=== PATIENT | male | born 1960 | race Caucasian/White ===

== ENCOUNTER 2018-09-08 06:34 | Emergency (ER) | payer OTHER ==
[2018-09-08 06:46] VITALS: BP 126/89; PULSE 77; RESP 16; TEMP 98.2
[2018-09-08] MEDS ORDERED: KETOROLAC 60 MG/2 ML VIAL IM STA (07:20)
--- NOTE | 2018-09-08 07:32 | ED ---
General Adult HPI - General Chief complaint: Extremity Injury, Lower Stated complaint: [facility]-Knee injury Time Seen by Provider: 09/08/18 06:50 Source: patient, RN notes reviewed Mode of arrival: ambulatory Limitations: no limitations - History of Present Illness Initial comments: This is a 58-year-old male who presents emergency pertinent complaining of knee pain. Patient states he twisted it yesterday and now it hurts on the medial aspect of his left knee. Patient denies any swelling. Patient states extending it completely straight hurts the most and bending it makes her feel better. Patient is able to bear weight. Patient denies any other injury at this time. - Related Data Home Medications Medication Instructions Recorded Confirmed Valsartan [Diovan] 160 mg PO BID 05/19/14 04/26/15 Pravastatin Sodium 80 mg PO DAILY 04/26/15 04/26/15 Previous Rx's Medication Instructions Recorded Albuterol Inhaler [Ventolin 1 - 2 puff INHALATION Q6HR PRN #1 04/26/15 Inhaler] inhaler Allergies Allergy/AdvReac Type Severity Reaction Status Date / Time No Known Allergies Allergy Verified 09/08/18 06:46 Review of Systems ROS Statement: Those systems with pertinent positive or pertinent negative responses have been documented in the HPI. ROS Other: All systems not noted in ROS Statement are negative. Past Medical History Past Medical History: Hyperlipidemia, Hypertension Additional Past Medical History / Comment(s): sleep apnea History of Any Multi-Drug Resistant Organisms: None Reported Additional Past Surgical History / Comment(s): nasal Past Psychological History: No Psychological Hx Reported Smoking Status: Former smoker Past Alcohol Use History: Occasional Past Drug Use History: None Reported General Exam - General Exam Comments Initial Comments: GENERAL Patient is well-developed and well-nourished. Patient is in mild distress. EYES Patient's pupils are equal and round. Extraocular motion is intact SKIN Unremarkable NEURO The patient is alert and oriented 3 PYSCH Patient has normal interpersonal interactions. MUSCULOSKELETAL Patient has full range of motion of the left knee there is no effusion it is tender the medial aspect of the left knee. Patient also has some tenderness in the medial aspect when doing stressing the medial ligament Limitations: no limitations Course Vital Signs 09/08/18 06:44 Temperature 98.2 F Pulse Rate 77 Respiratory 16 Rate Blood Pressure 126/89 O2 Sat by Pulse 96 Oximetry Disposition Clinical Impression: Knee sprain Disposition: HOME SELF-CARE Condition: Good Instructions (If sedation given, give patient instructions): Knee Sprain (ED) Additional Instructions: Patient should take Motrin when necessary for pain Is patient prescribed a controlled substance at d/c from ED?: No Referrals: Easton Peralta MD [STAFF PHYSICIAN] - 1-2 days Time of Disposition: 07:30
--- NOTE | 2018-09-08 07:54 | XR ---
EXAMINATION TYPE: XR knee complete LT , 3 VIEWS DATE OF EXAM ORDERED: 09/08/2018 HISTORY: Pain. COMPARISON: None. FINDINGS: There is minimal peaking of intercondylar spines. There is mild remodeling change in the p atellofemoral joint. There may be some mild medial joint space loss. No fracture, dislocation or knee joint effusion is seen. Note is made of vascular calcification. IMPRESSION: 1. NO ACUTE OSSEOUS LESION. 2. VERY EARLY CHANGES OF OSTEOARTHRITIS.
== END 2018-09-08 08:05 | disposition home or self-care (01) ==
LOC: EC 06:34
DX: S83.92XA Sprain of unspecified site of left knee, initial encounter (principal); E78.5 Hyperlipidemia, unspecified; I10 Essential (primary) hypertension; Z87.891 Personal history of nicotine dependence; Z79.899 Other long term (current) drug therapy; X50.1XXA Overexertion from prolonged static or awkward postures, initial encounter; Y92.69 Other specified industrial and construction area as the place of occurrence of the external cause; Y99.0 Civilian activity done for income or pay
CPT/HCPCS: 73562; 99283; 96372; L1830 ×2; J1885

== ENCOUNTER → 2018-09-10 | Outpatient (CLI) | payer SELFPAY ==
--- NOTE | 2018-09-10 12:52 | XR ---
Orbits HISTORY: MRI clearance, worked with metal 3 views the orbits No radiopaque foreign body evident within the orbits. Bone mineralization is normal. Paranasal sinuse s are well aerated. Mastoid air cells unremarkable as seen. There is a wire-like density present with in the region of the nasal bone approximately. IMPRESSION: Correlate for appropriate history of surgery to the nasal bone region. No radiopaque fore ign body evident within the orbits.
== END | disposition home or self-care (01) ==
LOC: RADXRMAIN 11:48
PROVIDERS: ATTEND Orthopaedic Surgery Sports Medicine
DX: Z01.818 Encounter for other preprocedural examination (principal)
CPT/HCPCS: 70030